=== PATIENT | male | born 1975 | race Caucasian/White ===

== ENCOUNTER 2020-10-06 15:30 | Outpatient (CLI) | payer BC | END 2020-10-06 16:15 | disposition home or self-care (01) | LOC: SLEEP 15:30 | PROVIDERS: ATTEND Nurse Practitioner | DX: G47.33 Obstructive sleep apnea (adult) (pediatric) (principal) | CPT/HCPCS: G0399 ==

== ENCOUNTER → 2022-03-09 | Outpatient (CLI) | payer BC ==
--- NOTE | 2022-03-09 10:46 | Diagnostic Imaging Report ---
INDICATION: Right shoulder pain. 3 views. The glenohumeral joint and AC joint are in good alignment. Articulating surfaces are smooth. Joint spaces are well-maintained. There are no fractures. No hypertrophic bony changes. No soft tissue calcification about the shoulder. IMPRESSION: Normal right shoulder. Dictated by: Dictated on workstation # [id number]
== END ==
LOC: RAD FS 08:32
PROVIDERS: ATTEND Nurse Practitioner
DX: M25.511 Pain in right shoulder (principal)
CPT/HCPCS: 73030